=== PATIENT | female | born 1990 | race Caucasian/White ===

== ENCOUNTER → 2016-08-06 | Outpatient (CLI) | payer OTHER, BC ==
--- NOTE | 2016-08-06 10:36 | REP ---
Hepatobiliary scan and gallbladder ejection fraction: History: Right upper quadrant abdominal tenderness and pain. Nausea. Technique: 6.5 mCi of technetium-99m mebrofenin was injected and sequential anterior images are acquired. 65 minutes after the mebrofenin injection, the patient consumed 8 ounces Ensure and an additional 60 minutes of imaging was acquired. Regions of interest are plotted around the gallbladder. Findings: The initial hepatocellular parenchymal uptake phase is normal and homogeneous. Intra- and extra-hepatic bile ducts and duodenum are labeled by the 10 -minute image. The gallbladder is first labeled on the 15 -minute image. There is normal washout from the liver parenchyma into the gallbladder and small intestine on subsequent images. The gallbladder ejection fraction is normal at 71 %. Values greater than 35 % are considered normal with this technique. Impression: Normal hepatobiliary scan and gallbladder ejection fraction. Signed by Abilio Jones MD 08/06/2016 10:27 A
== END | disposition home or self-care (01) ==
LOC: M RAD 08:01
PROVIDERS: ATTEND Physician Assistant
DX: R10.811 Right upper quadrant abdominal tenderness (principal)

== ENCOUNTER → 2016-09-15 | Outpatient (REF) | payer OTHER, BC | END | disposition home or self-care (01) | LOC: M LAB REF 10:13 | PROVIDERS: ATTEND Physician Assistant | DX: J02.9 Acute pharyngitis, unspecified (principal) ==

== ENCOUNTER 2017-06-10 12:08 | Emergency (ER) | payer BC, OTHER ==
[~2017-06-10] VITALS: Ht 167.6 cm; Wt 96.4 kg
[2017-06-10 12:08] VITALS: BP 157/91
--- NOTE | 2017-06-10 13:42 | REP ---
CT Head without contrast HISTORY: Injury COMPARISON: 02/10/2014 There is no intraparenchymal hemorrhage, acute infarct, mass or midline shift. The ventricular system is normal in appearance. There is no extra cerebral collection. There is no fracture. The visualized sinuses are clear. IMPRESSION: There is no intracranial lesion. Signed by Ector Diaz MD 06/10/2017 01:33 P
[2017-06-10] MEDS ORDERED: ZOFR4TAB3 PO (13:54)
[2017-06-10] MEDS ORDERED: IBUPROFEN 600 MG TAB PO ONE (14:00)
== END 2017-06-10 14:34 | disposition home or self-care (01) ==
LOC: M ED 12:08
DX: S06.0X0A Concussion without loss of consciousness, initial encounter (principal); W22.09XA Striking against other stationary object, initial encounter; Y92.89 Other specified places as the place of occurrence of the external cause; Y93.89 Activity, other specified; Y99.8 Other external cause status; Z88.1 Allergy status to other antibiotic agents; Z88.2 Allergy status to sulfonamides

== ENCOUNTER → 2019-01-12 | Outpatient (CLI) | payer BC ==
[~2019-01-12] MED LIST: ZOFR4TAB14 PO
--- NOTE | 2019-01-12 19:41 | REP ---
Left ankle five views: The patient complains of medial pain and swelling. Mineralization and joint spaces are unremarkable. There is no fracture or dislocation. There are no calcifications or foreign bodies. There is a small calcaneal plantar spur. Impression: Essentially negative left ankle. Electronically Signed by John Mcgraw MD 01/12/2019 07:33 P
== END ==
LOC: M WUC 17:48
PROVIDERS: ATTEND Physician Assistant
DX: M25.572 Pain in left ankle and joints of left foot (principal)

== ENCOUNTER → 2019-09-14 | Outpatient (CLI) | payer OTHER ==
--- NOTE | 2019-09-14 19:13 | ECHO ---
DATE OF PROCEDURE: 09/14/2019 REFERRING PROVIDER: JACKIE Rome INDICATION: Family history of ischemic heart disease and hypertension. Height 172 cm, weight 106 kg. DIMENSIONS: IVS: 1.0 LV: 4.2 LVPW: 1.1 LA: 3.2 Aorta: 2.4 IVC: 1.7 Mitral E wave velocity: 73 A-wave: 65 E prime septal: 7.2 E prime lateral: 10.7 FINDINGS: The study is of acceptable technical quality even though there are some limitations corresponding to patient's body habitus. Left ventricle is of normal size and systolic function, I estimate ejection fraction (EF) around 60-65%. Right ventricle is also normal size and systolic function. Both atria appear normal. Aortic, mitral and tricuspid valves appear normal. Pulmonic valve was poorly seen. No pericardial effusion is noted. Inferior vena cava is normal size. Aortic root, aortic arch and visualized segment of abdominal aorta appear normal. Doppler interrogation reveals competent aortic and mitral and tricuspid valves. Mitral inflow pattern and tissue Doppler imaging of mitral annulus revealed likely normal diastolic function even though tissue Doppler velocities of mitral annulus are mildly reduced. CONCLUSIONS: 1. Study is of acceptable technical quality, the patient is in sinus rhythm. 2. Normal left ventricular (LV) size and systolic function, normal diastolic function. 3. No significant valvular disease. 4. Normal central venous pressure. 5. Unable to estimate pulmonary artery pressure but no signs to suggest pulmonary hypertension. Subacute bacterial endocarditis (SBE) prophylaxis is not recommended. Essentially normal echocardiogram.
== END ==
LOC: M CARPUL 08:18
PROVIDERS: ATTEND Physician Assistant
DX: Z82.49 Family history of ischemic heart disease and other diseases of the circulatory system (principal)

== ENCOUNTER 2020-12-27 18:32 | Emergency (ER) | payer OTHER ==
[~2020-12-27] VITALS: Ht 170.2 cm; Wt 94.1 kg
[2020-12-27 19:46] LABS: BASO # 0.1 10^3/uL (0.0-0.2); BASO % 0.4 % (0.0-1.0); EOS # 0.2 10^3/uL (0.0-0.5); EOS % 1.5 % (0.0-3.0); HEMATOCRIT 44.8 % (36.0-47.0); HEMOGLOBIN 15.1 g/dl (12.0-15.5); LYMPH # 3.8 10^3/uL (1.5-5.0); LYMPH % 27.3 % (24.0-44.0); MEAN CORPUSCULAR HEMOGLOBIN 30.4 pg (27.0-33.0); MEAN CORPUSCULAR HGB CONC 33.7 g/dl (32.0-36.5); MEAN CORPUSCULAR VOLUME 90.3 fl (80.0-96.0); MONO # 1.2 10^3/uL (0.0-0.8); MONO % 8.8 % (2.0-8.0); NEUTROPHILS # 8.7 10^3/uL (1.5-8.5); NEUTROPHILS % 61.6 % (36.0-66.0); PLATELET COUNT, AUTOMATED 273 10^3/uL (150-450); RED BLOOD COUNT 4.96 10^6/uL (4.00-5.40); WHITE BLOOD COUNT 14.1 10^3/uL (4.0-10.0)
--- NOTE | 2020-12-27 20:01 | REP ---
INDICATION: CHEST PAIN COMPARISON: 09/24/2015 TECHNIQUE: Portable AP view of the chest FINDINGS: The mediastinum and cardiac silhouette are stable and within normal limits for portable technique. The lung ayala are clear without acute consolidation, effusion, or pneumothorax. Skeletal structures are intact. IMPRESSION: No acute cardiopulmonary process appreciated. <Electronically signed by Casimiro Geronimo > 12/27/20 [id number]
[2020-12-27 20:13] LABS: ALBUMIN 3.9 GM/DL (3.2-5.2); ALT/SGPT 28 U/L (12-78); BILIRUBIN,DIRECT < 0.1 MG/DL (0.0-0.2); BILIRUBIN,TOTAL 0.2 MG/DL (0.2-1.0); CK-MB VALUE MASS < 1.0 NG/ML (<3.6); CPK CREATINE PHOSPHOKINASE 94 U/L (26-192); LIPASE 82 U/L (73-393); MB/CK RELATIVE INDEX 1.06 (< OR =4); TOTAL PROTEIN 7.2 GM/DL (6.4-8.2); TROPONIN I < 0.02 NG/ML (< 0.10)
[2020-12-27 21:28] VITALS: BP 126/70
== END 2020-12-27 21:34 | disposition home or self-care (01) ==
LOC: M ED 18:32
DX: R00.2 Palpitations (principal); I49.3 Ventricular premature depolarization; R07.89 Other chest pain; K21.9 Gastro-esophageal reflux disease without esophagitis; Z87.820 Personal history of traumatic brain injury; Z82.49 Family history of ischemic heart disease and other diseases of the circulatory system; Z88.2 Allergy status to sulfonamides

== ENCOUNTER → 2020-12-31 | Outpatient (CLI) | payer OTHER ==
--- NOTE | 2021-01-02 20:48 | HOLTMON ---
[facility] Test Date: 2020-12-31 Pat Name: LESLY FOX Department: Room: - Gender: Female [employer]iture [employer] Inspector: osvaldo : 1990 Requested By: Love Mckeon Order Number: [id number] Reading MD: Yumiko Olivera Interpretive Statements Baseline sinus rhythm with normal AV conduction and narrow QRS complex. Average HR 82 bpm. No pauses and no episodes of atrial firbillation. Very rare isolated PAC's. Occasional PVC's (1% of all beats) including 6 couplets. No VT. Patient reported "constant chest pain and palpitations" during the monitored period. Electronically Signed on 01-02-2021 20:48:29 EDT by Yumiko Olivera
== END ==
LOC: M EKG 12:26
PROVIDERS: ATTEND Physician Assistant
DX: R00.2 Palpitations (principal)

== ENCOUNTER → 2021-01-20 | Outpatient (CLI) | payer OTHER ==
--- NOTE | 2021-01-21 18:42 | ECHO ---
ECHOCARDIOGRAM DATE OF PROCEDURE: 01/20/2021 Age: 30 Gender: Female Height: 67 inches Weight: 205 pounds Body surface area: 2.05 m2 Outpatient. REFERRING PHYSICIAN: JACKIE Rome INDICATION: Palpitations. MEASUREMENTS: 2D Measures: RV 3.2 cm LV 4.6 cm Septum 1.0 cm Posterior wall 1.0 cm Aortic root 2.8 cm LA 3.1 cm LVEF 70% Doppler Measurements: AV 1.25 m/s LVOT 1.09 m/s LVOT diameter 2.0 cm MV-E 73, A 40 E/A ratio 1.8 Early mitral deceleration time 171 msec E prime medial 10 A prime medial 12 E prime lateral 13 PV - 1.0 m/s Pulmonary artery acceleration time 129 msec RVSP 24 mmHg IVC 1.4 cm COMMENTS: Normal sinus rhythm without intraventricular conduction disturbance. No arrhythmia was noted during this study. Technically challenging study in light of the patient's body habitus, but diagnostically useful information was still obtained. M-mode and 2-dimensional echocardiography was performed with pulse, continuous wave, color flow, and tissue Doppler studies. Normal left ventricular size, wall thickness, and wall motion. Normal left atrial size and Doppler assessment of LV diastolic function and estimated mean left atrial pressure. Normal right heart chamber sizes and motion and estimated pulmonary arterial pressure. Normal IVC size with normal collapse against an elevated central venous pressure . Normal aortic dimensions. Normal-appearing and functioning valvular structures. No apparent intracardiac mass or pericardial effusion. MTDD
== END ==
LOC: M CARPUL 09:23
PROVIDERS: ATTEND Physician Assistant
DX: R00.2 Palpitations (principal)